=== PATIENT | female | born 1965 | race Caucasian/White ===

== ENCOUNTER 2018-11-19 19:20 | Observation (INO) | payer OTHER ==
--- NOTE | 2018-11-19 19:49 | PDOC ---
Rapid Medical Evaluation Time Seen by Provider: 11/19/18 19:46 Medical Evaluation: 11/19/18 19:46 I have performed a brief in-person evaluation of this patient. The patient presents with a chief complaint of: headache x2 months. +dizziness. Pertinent physical exam findings: CN II-XII grossly intact. Gait testing deferred. I have ordered the following: labs, urine, CTH The patient will proceed to the ED for further evaluation. Discharge Disposition - Diagnosis Headache - Referrals Referrals: Mindy Mathis [Primary Care Provider] - - Patient Instructions - Post Discharge Activity
[2018-11-19] MEDS ORDERED: KETOROLAC TROMETHAMINE 30 MG/1 ML VIAL IVPUSH ONE (19:50)
[2018-11-19] MEDS ORDERED: METOCLOPRAMIDE HCL INJECTION 10 MG/2 ML VIAL IVPUSH ONE (19:50)
[2018-11-19] MEDS ORDERED: SODIUM CHLORIDE 1,000 ML IV STA (19:50)
--- NOTE | 2018-11-19 20:41 | PDOC ---
*Physical Exam - Vital Signs Last Vital Signs Temp Pulse Resp BP Pulse Ox 98.3 F 91 H 16 132/72 100 11/19/18 19:47 11/19/18 19:47 11/19/18 19:47 11/19/18 19:47 11/19/18 19:47 ED Treatment Course - LABORATORY CBC & Chemistry Diagram: 11/19/18 21:51 11/19/18 21:51 Medical Decision Making - Medical Decision Making 11/19/18 20:41 Patient seen by the advanced practice provider under my direct supervision. Ancillary testing reviewed as necessary. I agree with plan as outlined by the advanced practice provider. *DC/Admit/Observation/Transfer Diagnosis at time of Disposition: Headache - Referrals Referrals: Mindy Mathis [Primary Care Provider] - - Patient Instructions - Post Discharge Activity
[2018-11-19] MEDS ORDERED: ACETAMINOPHEN 1000 MG/100 ML VIAL (NON FORMULARY) IVPB ONE (21:33)
[2018-11-19] MEDS ORDERED: METOCLOPRAMIDE HCL INJECTION 10 MG/2 ML VIAL ONE (21:40)
[2018-11-19] MEDS ORDERED: KETOROLAC TROMETHAMINE 30 MG/1 ML VIAL ONE (21:40)
[2018-11-19 22:15] LABS: BASO % 0.6 % (0-2.0); EOS % 5.2 % (0-4.5); HEMOGLOBIN 15.4 GM/dL (10.7-15.3); LYMPH % 34.7 % (8-40); MCH 33.4 pg (25.7-33.7); MCHC 34.9 g/dl (32.0-36.0); MEAN CELL VOLUME 95.6 fl (80-96); MEAN PLT VOLUME 8.2 fl (7.5-11.1); MONO % 7.9 % (3.8-10.2); NEUT % 51.6 % (42.8-82.8); PLATELET COUNT 289 K/MM3 (134-434); RDW 12.7 % (11.6-15.6); WHITE BLOOD COUNT 9.4 K/mm3 (4.0-10.0)
[2018-11-19 22:43] LABS: ALK PHOS 171 U/L (45-117); ANION GAP 8 MMOL/L (8-16); BILIRUBIN,TOTAL 0.2 mg/dL (0.2-1); BLOOD UREA NITROGEN 13 mg/dL (7-18); CALCIUM 9.4 mg/dL (8.5-10.1); CHLORIDE 102 mmol/L (98-107); CO2 27 mmol/L (21-32); CREATININE 0.8 mg/dL (0.55-1.3); SGPT/ALT 30 U/L (13-61); SODIUM 137 mmol/L (136-145); TOT PROT 7.6 g/dl (6.4-8.2)
[2018-11-19 22:44] LABS: POTASSIUM 4.3 mmol/L (3.5-5.1); SGOT/AST 19 U/L (15-37)
[2018-11-19 22:45] LABS: GLUCOSE,RANDOM 317 mg/dL (74-106)
[2018-11-19] MEDS ORDERED: MAGNESIUM SULF 50% (8.12 MEQ/2 ML-1 GM VIAL) IVPB ONE (23:22)
[2018-11-19] MEDS ORDERED: PROCHLORPERAZINE INJECTION 10 MG/2 ML VIAL IVPB ONE (23:22)
--- NOTE | 2018-11-19 23:43 | PDOC ---
History of Present Illness - General Chief Complaint: Lightheaded Stated Complaint: HEADACHE Time Seen by Provider: 11/19/18 19:46 History Source: Patient Exam Limitations: No Limitations Past History - Past Medical History Allergies/Adverse Reactions: Allergies Allergy/AdvReac Type Severity Reaction Status Date / Time clindamycin [From Cleocin] Allergy Verified 11/19/18 19:51 latex Allergy Verified 11/19/18 19:51 Penicillins Allergy Verified 11/19/18 19:51 COPD: No Diabetes: Yes (type 2) Other medical history: fibromylagia, neck fusion, migraines - Suicide/Smoking/Psychosocial Hx Smoking History: Former smoker Have you smoked in the past 12 months: No Information on smoking cessation initiated: No Hx Alcohol Use: No Drug/Substance Use Hx: No *Physical Exam - Vital Signs Last Vital Signs Temp Pulse Resp BP Pulse Ox 98.3 F 91 H 16 132/72 100 11/19/18 19:47 11/19/18 19:47 11/19/18 19:47 11/19/18 19:47 11/19/18 19:47 - Physical Exam General Appearance: No: Apparent Distress HEENT: positive: EOMI, MIGUEL Neck: positive: Supple Respiratory/Chest: positive: Lungs Clear, Normal Breath Sounds. negative: Respiratory Distress Cardiovascular: positive: Regular Rhythm, Regular Rate, S1, S2. negative: Murmur Gastrointestinal/Abdominal: positive: Normal Bowel Sounds, Soft. 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 negative: Sensory Deficit Moderate Sedation - Procedure Monitoring Vital Signs: Procedure Monitoring Vital Signs Temperature 98.3 F 11/19/18 19:47 Pulse Rate 91 H 11/19/18 19:47 Respiratory Rate 16 11/19/18 19:47 Blood Pressure 132/72 11/19/18 19:47 O2 Sat by Pulse Oximetry (%) 100 11/19/18 19:47 ED Treatment Course - LABORATORY CBC & Chemistry Diagram: 11/19/18 21:51 11/19/18 21:51 - ADDITIONAL ORDERS Additional order review: Laboratory Results 11/19/18 21:51 Sodium 137 Potassium 4.3 Chloride 102 Carbon Dioxide 27 Anion Gap 8 BUN 13 Creatinine 0.8 Creat Clearance w eGFR > 60 Random Glucose 317 H* Calcium 9.4 Total Bilirubin 0.2 AST 19 ALT 30 Alkaline Phosphatase 171 H Total Protein 7.6 Albumin 4.0 11/19/18 21:51 RBC 4.60 MCV 95.6 MCHC 34.9 RDW 12.7 MPV 8.2 Neutrophils % 51.6 Lymphocytes % 34.7 Monocytes % 7.9 Eosinophils % 5.2 H Basophils % 0.6 - Medications Given in the ED: ED Medications Discontinued Medications Generic Name Dose Route Start Last Admin Trade Name Ziaq PRN Reason Stop Dose Admin Acetaminophen 1,000 mg 11/19/18 21:33 11/19/18 20:44 Ofirmev Injection - IVPB 11/19/18 21:34 1,000 mg ONCE ONE Administration Diphenhydramine HCl 25 mg 11/19/18 19:50 11/19/18 20:43 Benadryl Injection - IVPUSH 11/19/18 19:51 25 mg ONCE ONE Administration Sodium Chloride 1,000 mls @ 1,000 mls/hr 11/19/18 19:50 11/19/18 20:43 Normal Saline - IV 11/19/18 20:49 1,000 mls/hr ASDIR STA Administration Ketorolac Tromethamine 30 mg 11/19/18 19:50 11/19/18 22:45 Toradol Injection - IVPUSH 11/19/18 19:51 Not Given ONCE ONE Metoclopramide HCl 10 mg 11/19/18 19:50 11/19/18 20:44 Reglan Injection - IVPUSH 11/19/18 19:51 10 mg ONCE ONE Administration Medical Decision Making - Medical Decision Making 53 y/o F with hx of migraines, fibromyalgia, DM, chronic sinusitis, bipolar presents with gradual onset of generalized PALAFOX x 2 months, not getting better despite use of Zomeg, Excedrin, Tylenol and Alleve. She saw her PCP twice regarding this and was told it was likely related to migraine; she last saw her PCP 4 days ago when she received Toradol which did not help patient. PALAFOX is worse with light and noise. PALAFOX associated with lightheadedness and increased fatigue over past 2 months. Also mentions having R eye pain last night. Denies visual/gait changes, sob, cp, abd pain, n/v, vertigo. Patient has numbness from her neuropathy but denies new numbness/tingling/weakness of extremities. CT head negative Also noted with elevated glucose, no anion gap noted Consider intractable migraine Patient was given 1L of IVF, benadryl, Tylenol and Reglan but with minimal relief of pain Will also try Compazine and magnesium; reassess Will also recheck FS 11/19/18 23:39 Reassessed and still feels PALAFOX is at same pain level Patient otherwise appears comfortable Not suspicious for SAH Will admit for intractable migraine 11/20/18 02:15 *DC/Admit/Observation/Transfer Diagnosis at time of Disposition: Intractable migraine Qualifiers: Migraine type: unspecified Status migrainosus presence: without status migrainosus Qualified Code(s): G43.919 - Migraine, unspecified, intractable, without status migrainosus - Discharge Dispostion Condition at time of disposition: Stable Decision to Admit order: Yes - Referrals Referrals: Mindy Mathis [Primary Care Provider] - - Patient Instructions - Post Discharge Activity
[2018-11-20] MEDS ORDERED: MAGNESIUM 1GM/D5W - 1 GM/100 ML IVPB IVPB ONE (00:10)
[2018-11-20] MEDS ORDERED: SODIUM CHLORIDE 1,000 ML IV STA (00:31)
--- NOTE | 2018-11-20 02:11 | HP ---
CHIEF COMPLAINT: headache PCP: Del HISTORY OF PRESENT ILLNESS: 53 y/o woman with headache x 2 months, not getting better despite use of Zomeg, Excedrin, Tylenol and Alleve. She saw her PCP twice regarding this and was told it was likely related to migraine; she last saw her PCP 4 days ago when she received Toradol which did not help patient. PALAFOX is worse with light and noise. Also feeling fatigue for last 2 months, reports very uncontrolled blood glucose with last a1c being 14. ER course was notable for: (1) head CT (2) toradol (3) Recent Travel: no PAST MEDICAL HISTORY: migraines, fibromyalgia, DM, chronic sinusitis, bipolar PAST SURGICAL HISTORY: no Social History: Smoking:no Alcohol:no Drugs: no Family History: no Allergies clindamycin [From Cleocin] Allergy (Verified 11/19/18 19:51) latex Allergy (Verified 11/19/18 19:51) Penicillins Allergy (Verified 11/19/18 19:51) HOME MEDICATIONS: REVIEW OF SYSTEMS CONSTITUTIONAL: Absent: fever, chills, diaphoresis, , loss of appetite, weight change present- generalized weakness, malaise HEENT: Absent: rhinorrhea, nasal congestion, throat pain, throat swelling, difficulty swallowing, mouth swelling, ear pain, eye pain, visual changes CARDIOVASCULAR: Absent: chest pain, syncope, palpitations, irregular heart rate, lightheadedness , peripheral edema RESPIRATORY: Absent: cough, shortness of breath, dyspnea with exertion, orthopnea, wheezing, stridor, hemoptysis GASTROINTESTINAL: Absent: abdominal pain, abdominal distension, nausea, vomiting, diarrhea, constipation, melena, hematochezia GENITOURINARY: Absent: dysuria, frequency, urgency, hesitancy, hematuria, flank pain, genital pain MUSCULOSKELETAL: Absent: myalgia, arthralgia, joint swelling, back pain, neck pain SKIN: Absent: rash, itching, pallor HEMATOLOGIC/IMMUNOLOGIC: Absent: easy bleeding, easy bruising, lymphadenopathy, frequent infections ENDOCRINE: Absent: unexplained weight gain, unexplained weight loss, heat intolerance, cold intolerance NEUROLOGIC: Absent: , focal weakness or paresthesias, dizziness, unsteady gait, seizure, mental status changes, bladder or bowel incontinence present- headache PSYCHIATRIC: Absent: anxiety, depression, suicidal or homicidal ideation, hallucinations. PHYSICAL EXAMINATION Vital Signs - 24 hr 11/19/18 19:47 Temperature 98.3 F Pulse Rate 91 H Respiratory 16 Rate Blood Pressure 132/72 O2 Sat by Pulse 100 Oximetry (%) GENERAL: Awake, alert, and fully oriented, in no acute distress. HEAD: Normal with no signs of trauma. EYES: Pupils equal, round and reactive to light, extraocular movements intact, sclera anicteric, conjunctiva clear. No lid lag. EARS, NOSE, THROAT: Ears normal, nares patent, oropharynx clear without exudates. Moist mucous membranes. NECK: Normal range of motion, supple without lymphadenopathy, JVD, or masses. LUNGS: Breath sounds equal, clear to auscultation bilaterally. No wheezes, and no crackles. No accessory muscle use. HEART: Regular rate and rhythm, normal S1 and S2 without murmur, rub or gallop. ABDOMEN: Soft, nontender, not distended, normoactive bowel sounds, no guarding, no rebound, no masses. MUSCULOSKELETAL: Normal range of motion at all joints. No bony deformities or tenderness. No CVA tenderness. UPPER EXTREMITIES: 2+ pulses, warm, well-perfused. No cyanosis. No clubbing. No peripheral edema. LOWER EXTREMITIES: 2+ pulses, warm, well-perfused. No calf tenderness. No peripheral edema. NEUROLOGICAL: Cranial nerves II-XII intact. Normal speech. Normal gait. PSYCHIATRIC: Cooperative. Good eye contact. Appropriate mood and affect. SKIN: Warm, dry, normal turgor, no rashes or lesions noted, normal capillary refill. Laboratory Results - last 24 hr 11/19/18 11/19/18 11/20/18 21:51 21:51 00:20 WBC 9.4 RBC 4.60 Hgb 15.4 H Hct 44.0 MCV 95.6 MCH 33.4 MCHC 34.9 RDW 12.7 Plt Count 289 MPV 8.2 Absolute Neuts (auto) 4.9 Neutrophils % 51.6 Lymphocytes % 34.7 Monocytes % 7.9 Eosinophils % 5.2 H Basophils % 0.6 Nucleated RBC % 0 Sodium 137 Potassium 4.3 Chloride 102 Carbon Dioxide 27 Anion Gap 8 BUN 13 Creatinine 0.8 Creat Clearance w eGFR > 60 POC Glucometer 317 Random Glucose 317 H* Calcium 9.4 Total Bilirubin 0.2 AST 19 ALT 30 Alkaline Phosphatase 171 H Total Protein 7.6 Albumin 4.0 imaging reviewed ASSESSMENT/PLAN: #Headache- migraine? analgesic overuse headache? CT negative for any acute intracranial pathology. -observation -naproxen 500mg po prn -neuro evaluation -zofran IV prn if nausea or vomiting -avoid excess noise/light #DM -uncontrolled , no -novolog sliding scale -diabetic diet -a1c -IV fluid hydration -endocrine consult #DVT ppx- heparin sc Visit type - Emergency Visit Emergency Visit: Yes ED Registration Date: 11/20/18 Care time: The patient presented to the Emergency Department on the above date and was hospitalized for further evaluation of their emergent condition. - New Patient This patient is new to me today: Yes Date on this admission: 11/20/18 - Critical Care Critical Care patient: No
[2018-11-20] MEDS ORDERED: ONDANSETRON 4 MG/2 ML VIAL IM PRN (02:14)
[2018-11-20] MEDS ORDERED: NAPROXEN 500 MG TABLET (FP) PO PRN (02:15)
[2018-11-20] MEDS: SODIUM CHLORIDE 1,000 ML IV SCH ×2 (04:43→11:43)
[2018-11-20 04:48] LABS: URINE APPEARANCE CLEAR; URINE BILIRUBIN NEGATIVE (<2.0 mg/dL); URINE COLOR LTYELLOW; URINE GLUCOSE (UA) 3+ (NEGATIVE); URINE KETONE NEGATIVE (NEGATIVE); URINE LEUK ESTERASE NEGATIVE (NEGATIVE); URINE NITRITE NEGATIVE (NEGATIVE); URINE PROTEIN NEGATIVE (NEGATIVE); URINE UROBILINOGEN NEGATIVE mg/dL (0.2-1.0)
[2018-11-20] MEDS ORDERED: INSULIN (NOVOLOG) ASPART 100 UNITS/ML 10ML VIAL ONE (07:21)
[2018-11-20] MEDS: INSULIN SLIDING SCALE (NOVOLOG) 1 VIAL SQ SCH ×4 (07:25→22:14)
--- NOTE | 2018-11-20 08:29 | PN ---
Progress Note, Physician Chief Complaint: EVENTS AND NOTES REVIEWED C/O HEADACHE - Current Medication List Current Medications: Active Medications Heparin Sodium (Porcine) (Heparin -) 5,000 unit SQ BID CLARI Sodium Chloride (Normal Saline -) 1,000 mls @ 75 mls/hr IV ASDIR CLARI Last Admin: 11/20/18 04:43 Dose: 75 mls/hr Insulin Aspart (Novolog Vial Sliding Scale -) 1 vial SQ ACHS [facility]; Protocol Last Admin: 11/20/18 07:25 Dose: 6 units Insulin Detemir (Levemir Vial) 10 units SQ HS CLARI Ketorolac Tromethamine (Toradol Injection -) 30 mg IVPUSH Q6H PRN PRN Reason: PAIN LEVEL 6-10 Stop: 11/25/18 08:27 Naproxen (Naprosyn -) 500 mg PO BID PRN PRN Reason: PAIN LEVEL 6-10 Ondansetron HCl (Zofran Injection) 4 mg IM Q6H PRN PRN Reason: NAUSEA - Objective Vital Signs: Vital Signs Temperature 98.1 F 11/20/18 06:18 Pulse Rate 74 11/20/18 06:18 Respiratory Rate 16 11/20/18 06:18 Blood Pressure 126/75 11/20/18 06:18 O2 Sat by Pulse Oximetry (%) 99 11/20/18 06:18 Constitutional: Yes: Mild Distress Eyes: Yes: WNL HENT: Yes: WNL Neck: Yes: WNL Cardiovascular: Yes: WNL Respiratory: Yes: WNL Gastrointestinal: Yes: WNL Genitourinary: Yes: WNL Musculoskeletal: Yes: WNL Extremities: Yes: WNL Edema: No Integumentary: Yes: WNL Wound/Incision: Yes: Clean/Dry Neurological: Yes: WNL ...Motor Strength: WNL Labs: CBC, BMP 11/19/18 21:51 11/19/18 21:51 Problem List - Problems (1) Diabetes type 2, uncontrolled Code(s): E11.65 - TYPE 2 DIABETES MELLITUS WITH HYPERGLYCEMIA (2) Intractable migraine Code(s): G43.919 - MIGRAINE, UNSP, INTRACTABLE, WITHOUT STATUS MIGRAINOSUS Qualifiers: Migraine type: unspecified Status migrainosus presence: without status migrainosus Qualified Code(s): G43.919 - Migraine, unspecified, intractable, without status migrainosus Assessment/Plan TORADOL IV PRN ENDOCRINE CONSULT FOR UNCONTROLLED DM NEUROLOGY EVAL FOR HEADACHE MRI BRAIN PENDING CHECKING LABS
[2018-11-20] MEDS: SUMAtriptan SUCCINATE 25 MG TABLET PO PRN (11:43)
[2018-11-20] MEDS: HEPARIN NA (PORCINE) 5,000 UNITS/ML 1ML VIAL SQ SCH ×2 (11:43→22:13)
--- NOTE | 2018-11-20 13:01 | CON.NEURO ---
Consult - History of Present Illness History of Present Illness: 53 y/o woman with headache x 2 months, not getting better despite use of Zomeg, Excedrin, Tylenol and Alleve. She saw her PCP twice regarding this and was told it was likely related to migraine; she last saw her PCP 4 days ago when she received Toradol which did not help patient. PALAFOX is worse with light and noise. Also feeling fatigue for last 2 months, reports very uncontrolled blood glucose with last a1c being 14. CT HD (-) - Alcohol/Substance Use Hx Alcohol Use: No - Smoking History Smoking history: Former smoker Have you smoked in the past 12 months: No Home Medications - Allergies Allergies/Adverse Reactions: Allergies Allergy/AdvReac Type Severity Reaction Status Date / Time clindamycin [From Cleocin] Allergy Verified 11/19/18 19:51 latex Allergy Verified 11/19/18 19:51 Penicillins Allergy Verified 11/19/18 19:51 - Home Medications Home Medications: Ambulatory Orders Atorvastatin Ca [Lipitor] 40 mg PO HS 11/20/18 Carbamazepine [Tegretol -] 200 mg PO DAILY 11/20/18 Carbamazepine [Tegretol -] 400 mg PO HS 11/20/18 Duloxetine HCl [Cymbalta] 60 mg PO BID 11/20/18 Gabapentin 600 mg PO BID 11/20/18 Liraglutide [Victoza -] 1.8 mg SQ DAILY@0700 11/20/18 Metformin HCl [Glucophage] 1,000 mg PO BID 11/20/18 Milnacipran HCl [Savella] 50 mg PO BID 11/20/18 Montelukast Sodium [Singulair] 10 mg PO DAILY 11/20/18 Quetiapine Fumarate [Seroquel] 150 tab PO DAILY 11/20/18 Solifenacin Succinate [Vesicare -] 10 mg PO DAILY 11/20/18 Tramadol HCl 50 mg PO TID 11/20/18 Physical Exam-Neuro Vital Signs: Vital Signs Temperature 98.1 F 11/20/18 06:18 Pulse Rate 74 11/20/18 06:18 Respiratory Rate 16 11/20/18 06:18 Blood Pressure 126/75 11/20/18 06:18 O2 Sat by Pulse Oximetry (%) 99 11/20/18 06:18 Labs: CBC, BMP 11/19/18 21:51 11/19/18 21:51 Problem List - Problems (1) Diabetes type 2, uncontrolled Code(s): E11.65 - TYPE 2 DIABETES MELLITUS WITH HYPERGLYCEMIA (2) Intractable migraine Code(s): G43.919 - MIGRAINE, UNSP, INTRACTABLE, WITHOUT STATUS MIGRAINOSUS Qualifiers: Migraine type: unspecified Status migrainosus presence: without status migrainosus Qualified Code(s): G43.919 - Migraine, unspecified, intractable, without status migrainosus Assessment/Plan 53 y/o woman with headache x 2 months, not getting better despite use of Zomeg, Excedrin, Tylenol and Alleve. She saw her PCP twice regarding this and was told it was likely related to migraine; she last saw her PCP 4 days ago when she received Toradol which did not help patient. PALAFOX is worse with light and noise. Also feeling fatigue for last 2 months, reports very uncontrolled blood glucose with last a1c being 14. CT HD (-) AP : status migrainosous, has dealt with PALAFOX since she was child due for BOTOX in few weeks outpt though has PALAFOX VAS 9/10 x 2 months now - intractable would get baseline EKG and if no hx cardiac issues (she denies) would start DHE 0.5MG IVTID and premedicate with Reglan 10MG 30min prior. DM control will FU plz call any questions DR CROFT [phone]
[2018-11-20 14:51] VITALS: BMI 34.5
[2018-11-20] MEDS ORDERED: INSULIN (LEVEMIR) 100 UNITS/ML UNITS SQ SCH (22:00)
[2018-11-20] MEDS: KETOROLAC TROMETHAMINE 30 MG/1 ML VIAL IVPUSH PRN (22:18)
--- NOTE | 2018-11-21 01:43 | CONSULT ---
Consult Consult Specialty:: endocrine Referred by:: dr.[email or web address] melo Reason for Consultation:: diabetes mellitus type2 - History of Present Illness Chief Complaint: high sugars and headaches History of Present Illness: 53 y/o woman with pmh dm type 2, headache , not getting better despite use of Zomeg, Excedrin, Tylenol and Alleve. She saw her PCP twice regarding this and was told it was likely related to migraine; she last saw her PCP 4 days ago when she received Toradol which was not relieved,headache were unbearable which she was seen in ed,found to have bs over 350mg/dl and admitted for intractable headache and hyperglycemia,she has had difficulty controlling bs despite diet restriction,headache have made eating difficult she denies hypoglycemia - Past Medical History ...: No - Alcohol/Substance Use Hx Alcohol Use: No - Smoking History Smoking history: Former smoker Have you smoked in the past 12 months: No If you are a former smoker, when did you quit?: 1999 Home Medications - Allergies Allergies/Adverse Reactions: Allergies Allergy/AdvReac Type Severity Reaction Status Date / Time clindamycin [From Cleocin] Allergy Verified 11/19/18 19:51 latex Allergy Verified 11/19/18 19:51 Penicillins Allergy Verified 11/19/18 19:51 - Home Medications Home Medications: Ambulatory Orders Atorvastatin Ca [Lipitor] 40 mg PO HS 11/20/18 Carbamazepine [Tegretol -] 200 mg PO DAILY 11/20/18 Carbamazepine [Tegretol -] 400 mg PO HS 11/20/18 Duloxetine HCl [Cymbalta] 60 mg PO BID 11/20/18 Gabapentin 600 mg PO BID 11/20/18 Liraglutide [Victoza -] 1.8 mg SQ DAILY@0700 11/20/18 Metformin HCl [Glucophage] 1,000 mg PO BID 11/20/18 Milnacipran HCl [Savella] 50 mg PO BID 11/20/18 Montelukast Sodium [Singulair] 10 mg PO DAILY 11/20/18 Quetiapine Fumarate [Seroquel] 150 tab PO DAILY 11/20/18 Solifenacin Succinate [Vesicare -] 10 mg PO DAILY 11/20/18 Tramadol HCl 50 mg PO TID 11/20/18 Review of Systems - Review of Systems Constitutional: reports: Lethargy Eyes: reports: Blurred Vision HENT: reports: No Symptoms Neck: reports: No Symptoms Cardiovascular: reports: No Symptoms Respiratory: reports: No Symptoms Gastrointestinal: reports: Bloating, Constipation Genitourinary: reports: No Symptoms Breasts: reports: No Symptoms Reported Musculoskeletal: reports: Joint Swelling, Muscle Pain, Muscle Cramps, Muscle Weakness Neurological: reports: Weakness Endocrine: reports: Unexplained Weight Loss Hematology/Lymphatic: reports: No Symptoms Physical Exam Vital Signs: Vital Signs Temperature 98.5 F 11/20/18 18:00 Pulse Rate 82 11/20/18 18:00 Respiratory Rate 20 11/20/18 18:00 Blood Pressure 144/92 11/20/18 18:00 O2 Sat by Pulse Oximetry (%) 99 11/20/18 17:15 Constitutional: Yes: Calm Eyes: Yes: EOM Intact HENT: Yes: Normocephalic Neck: Yes: Trachea Midline Cardiovascular: Yes: Regular Rate and Rhythm Respiratory: Yes: CTA Bilaterally Gastrointestinal: Yes: Normal Bowel Sounds ...Rectal Exam: Yes: Deferred Renal/: Yes: WNL Musculoskeletal: Yes: WNL Extremities: Yes: WNL Edema: No ...Motor Strength: WNL Psychiatric: Yes: Alert, Oriented Labs: CBC, BMP 11/19/18 21:51 11/19/18 21:51 Problem List - Problems (1) Diabetes type 2, uncontrolled Code(s): E11.65 - TYPE 2 DIABETES MELLITUS WITH HYPERGLYCEMIA (2) Intractable migraine Code(s): G43.919 - MIGRAINE, UNSP, INTRACTABLE, WITHOUT STATUS MIGRAINOSUS Qualifiers: Migraine type: unspecified Status migrainosus presence: without status migrainosus Qualified Code(s): G43.919 - Migraine, unspecified, intractable, without status migrainosus Assessment/Plan Current Active Problems Diabetes type 2, uncontrolled (Acute) Intractable migraine (Acute) neuropathy headache mostly diabetic neuralgia Abnormal Lab Results 11/20/18 11/20/18 11/20/18 04:32 04:32 06:00 Hemoglobin A1c % 12.5 H C-Reactive Protein Urine Glucose (UA) 3+ H Acetone, Qual Negative L 11/20/18 08:50 Hemoglobin A1c % C-Reactive Protein 0.4 H Urine Glucose (UA) Acetone, Qual Laboratory Results - last 24 hr 11/20/18 11/20/18 11/20/18 04:20 04:32 04:32 ESR POC Glucometer 299 Hemoglobin A1c % C-Reactive Protein Urine Color Ltyellow Urine Appearance Clear Urine pH 6.0 Ur Specific [place] 1.026 Urine Protein Negative Urine Glucose (UA) 3+ H Urine Ketones Negative Urine Blood Negative Urine Nitrite Negative Urine Bilirubin Negative Urine Urobilinogen Negative Ur Leukocyte Esterase Negative Carbamazepine Acetone, Qual Negative L 11/20/18 11/20/18 11/20/18 06:00 06:38 07:19 ESR POC Glucometer 272 294 Hemoglobin A1c % 12.5 H C-Reactive Protein Urine Color Urine Appearance Urine pH Ur Specific [place] Urine Protein Urine Glucose (UA) Urine Ketones Urine Blood Urine Nitrite Urine Bilirubin Urine Urobilinogen Ur Leukocyte Esterase Carbamazepine Acetone, Qual 11/20/18 11/20/18 11/20/18 08:50 08:50 08:50 ESR 12 POC Glucometer Hemoglobin A1c % C-Reactive Protein 0.4 H Urine Color Urine Appearance Urine pH Ur Specific [place] Urine Protein Urine Glucose (UA) Urine Ketones Urine Blood Urine Nitrite Urine Bilirubin Urine Urobilinogen Ur Leukocyte Esterase Carbamazepine 3.8 Acetone, Qual 11/20/18 11/20/18 11/20/18 11:42 17:06 22:11 ESR POC Glucometer 311 250 305 Hemoglobin A1c % C-Reactive Protein Urine Color Urine Appearance Urine pH Ur Specific [place] Urine Protein Urine Glucose (UA) Urine Ketones Urine Blood Urine Nitrite Urine Bilirubin Urine Urobilinogen Ur Leukocyte Esterase Carbamazepine Acetone, Qual plan: levemir 25 unit am levemir 15 units hs novolog scale diet nutrition follow up for cgms monitoring out patient
[2018-11-21] MEDS: SODIUM CHLORIDE 1,000 ML IV SCH (04:48)
[2018-11-21] MEDS: INSULIN SLIDING SCALE (NOVOLOG) 1 VIAL SQ SCH ×2 (06:49→12:09)
[2018-11-21] MEDS: KETOROLAC TROMETHAMINE 30 MG/1 ML VIAL IVPUSH PRN (06:50)
[2018-11-21 06:57] VITALS: TEMP 98.3
[2018-11-21] MEDS ORDERED: INSULIN (LEVEMIR) 100 UNITS/ML UNITS SQ SCH ×3 (07:00→22:00)
[2018-11-21] MEDS ORDERED: INSULIN (LEVEMIR) 100 UNITS/ML UNITS SQ ONE (07:04)
[2018-11-21] MEDS ORDERED: INSULIN (NOVOLOG) ASPART 100 UNITS/ML 10ML VIAL ONE ×2 (07:04→12:06)
[2018-11-21 08:37] LABS: HEMATOCRIT 41.6 % (32.4-45.2); HEMOGLOBIN 14.5 GM/dL (10.7-15.3); MCH 33.4 pg (25.7-33.7); MCHC 34.9 g/dl (32.0-36.0); MEAN CELL VOLUME 95.5 fl (80-96); MEAN PLT VOLUME 7.9 fl (7.5-11.1); PLATELET COUNT 259 K/MM3 (134-434); RBC 4.36 M/mm3 (3.60-5.2); RDW 12.4 % (11.6-15.6); WHITE BLOOD COUNT 7.7 K/mm3 (4.0-10.0)
[2018-11-21 09:11] LABS: ANION GAP 6 MMOL/L (8-16); BLOOD UREA NITROGEN 12 mg/dL (7-18); CALCIUM 8.4 mg/dL (8.5-10.1); CHLORIDE 108 mmol/L (98-107); CO2 23 mmol/L (21-32); CREATININE 0.5 mg/dL (0.55-1.3); GLUCOSE,RANDOM 217 mg/dL (74-106); MAGNESIUM 1.8 mg/dL (1.8-2.4); POTASSIUM 3.9 mmol/L (3.5-5.1); SODIUM 137 mmol/L (136-145)
[2018-11-21] MEDS: HEPARIN NA (PORCINE) 5,000 UNITS/ML 1ML VIAL SQ SCH (09:23)
--- NOTE | 2018-11-21 10:00 | DS ---
Physical Examination Vital Signs: Vital Signs Temperature 98.3 F 11/21/18 06:00 Pulse Rate 80 11/21/18 06:00 Respiratory Rate 20 11/21/18 06:00 Blood Pressure 150/80 11/21/18 06:00 O2 Sat by Pulse Oximetry (%) 98 11/21/18 01:00 Constitutional: Yes: No Distress Eyes: Yes: WNL HENT: Yes: WNL Neck: Yes: WNL Cardiovascular: Yes: WNL Respiratory: Yes: WNL Gastrointestinal: Yes: WNL Renal/: Yes: WNL Musculoskeletal: Yes: WNL Extremities: Yes: WNL Labs: CBC, BMP 11/21/18 08:00 11/21/18 08:00 Discharge Summary Reason For Visit: INTRACTABLE MIGRAINE Current Active Problems Diabetes type 2, uncontrolled (Acute) Intractable migraine (Acute) Procedures: Principal: MRI BRAIN Hospital Course: ADMITTED IVF IV MEDICATIONS PAIN CONTROL, NEUROLOGY WORKUP Condition: Stable - Instructions Diet, Activity, Other Instructions: SEE DR LEW IN 1-2 DAYS NEURO FOLOW UP SEE YOUR PMD IN 1 WEEK Disposition: HOME - Home Medications Comprehensive Discharge Medication List: Ambulatory Orders Atorvastatin Ca [Lipitor] 40 mg PO HS 11/20/18 Carbamazepine [Tegretol -] 200 mg PO DAILY 11/20/18 Carbamazepine [Tegretol -] 400 mg PO HS 11/20/18 Duloxetine HCl [Cymbalta] 60 mg PO BID 11/20/18 Gabapentin 600 mg PO BID 11/20/18 Liraglutide [Victoza -] 1.8 mg SQ DAILY@0700 11/20/18 Metformin HCl [Glucophage] 1,000 mg PO BID 11/20/18 Milnacipran HCl [Savella] 50 mg PO BID 11/20/18 Montelukast Sodium [Singulair] 10 mg PO DAILY 11/20/18 Quetiapine Fumarate [Seroquel] 150 tab PO DAILY 11/20/18 Solifenacin Succinate [Vesicare -] 10 mg PO DAILY 11/20/18 Tramadol HCl 50 mg PO TID 11/20/18 Naproxen [Naprosyn -] 500 mg PO BID PRN #60 tablet 11/21/18 Sumatriptan Succinate [Imitrex -] 25 mg PO Q12H PRN #30 tablet 11/21/18
[2018-11-21 10:31] VITALS: BP 141/85; PULSE 76
--- NOTE | 2018-11-21 12:07 | PN ---
Progress Note (short form) - Note Progress Note: 53 y/o woman with headache x 2 months, not getting better despite use of Zomeg, Excedrin, Tylenol and Alleve. She saw her PCP twice regarding this and was told it was likely related to migraine; she last saw her PCP 4 days ago when she received Toradol which did not help patient. PALAFOX is worse with light and noise. Also feeling fatigue for last 2 months, reports very uncontrolled blood glucose with last a1c being 14. CT HD (-) FU : seen by melani PALAFOX continues, but is longstanding - Alcohol/Substance Use Hx Alcohol Use: No - Smoking History Smoking history: Former smoker Have you smoked in the past 12 months: No Home Medications - Allergies Allergies/Adverse Reactions: Allergies Allergy/AdvReac Type Severity Reaction Status Date / Time clindamycin [From Cleocin] Allergy Verified 11/19/18 19:51 latex Allergy Verified 11/19/18 19:51 Penicillins Allergy Verified 11/19/18 19:51 - Home Medications Home Medications: Ambulatory Orders Atorvastatin Ca [Lipitor] 40 mg PO HS 11/20/18 Carbamazepine [Tegretol -] 200 mg PO DAILY 11/20/18 Carbamazepine [Tegretol -] 400 mg PO HS 11/20/18 Duloxetine HCl [Cymbalta] 60 mg PO BID 11/20/18 Gabapentin 600 mg PO BID 11/20/18 Liraglutide [Victoza -] 1.8 mg SQ DAILY@0700 11/20/18 Metformin HCl [Glucophage] 1,000 mg PO BID 11/20/18 Milnacipran HCl [Savella] 50 mg PO BID 11/20/18 Montelukast Sodium [Singulair] 10 mg PO DAILY 11/20/18 Quetiapine Fumarate [Seroquel] 150 tab PO DAILY 11/20/18 Solifenacin Succinate [Vesicare -] 10 mg PO DAILY 11/20/18 Tramadol HCl 50 mg PO TID 11/20/18 Physical Exam-Neuro Vital Signs: Vital Signs Temperature 98.3 F 11/21/18 10:00 Pulse Rate 76 11/21/18 10:00 Respiratory Rate 20 11/21/18 10:00 Blood Pressure 141/85 11/21/18 10:00 O2 Sat by Pulse Oximetry (%) 98 11/21/18 01:00 Labs: CBC, BMP 11/19/18 21:51 11/19/18 21:51 Problem List - Problems (1) Diabetes type 2, uncontrolled Code(s): E11.65 - TYPE 2 DIABETES MELLITUS WITH HYPERGLYCEMIA (2) Intractable migraine Code(s): G43.919 - MIGRAINE, UNSP, INTRACTABLE, WITHOUT STATUS MIGRAINOSUS Qualifiers: Migraine type: unspecified Status migrainosus presence: without status migrainosus Qualified Code(s): G43.919 - Migraine, unspecified, intractable, without status migrainosus Assessment/Plan 53 y/o woman with headache x 2 months, not getting better despite use of Zomeg, Excedrin, Tylenol and Alleve. She saw her PCP twice regarding this and was told it was likely related to migraine; she last saw her PCP 4 days ago when she received Toradol which did not help patient. PALAFOX is worse with light and noise. Also feeling fatigue for last 2 months, reports very uncontrolled blood glucose with last a1c being 14. CT HD (-) AP : status migrainosous, has dealt with PALAFOX since she was child due for BOTOX in few weeks outpt though has PALAFOX VAS 9/10 x 2 months now - intractable will manage as outpt DM Control neuro cleared DR CROFT [phone] Problem List - Problems (1) Diabetes type 2, uncontrolled Code(s): E11.65 - TYPE 2 DIABETES MELLITUS WITH HYPERGLYCEMIA (2) Intractable migraine Code(s): G43.919 - MIGRAINE, UNSP, INTRACTABLE, WITHOUT STATUS MIGRAINOSUS Qualifiers: Migraine type: unspecified Status migrainosus presence: without status migrainosus Qualified Code(s): G43.919 - Migraine, unspecified, intractable, without status migrainosus
[2018-11-21] MEDS ORDERED: PT OWN MED DRAWER 7, Y5N ONE (12:12)
[2018-11-21] MEDS: SUMAtriptan SUCCINATE 25 MG TABLET PO PRN (12:13)
== END 2018-11-21 12:50 | disposition home or self-care (01) ==
LOC: JER 19:20 → JERBED 11-20 02:16 → J5S 11-20 08:20
PROVIDERS: ADMIT Internal Medicine; ATTEND Family Medicine
PROC: 3E033GC Introduction of Other Therapeutic Substance into Peripheral Vein, Percutaneous Approach (ICD-10-PCS; principal; 2018-11-20)
PROC: 3E0337Z Introduction of Electrolytic and Water Balance Substance into Peripheral Vein, Percutaneous Approach (ICD-10-PCS; 2018-11-20)
PROC: 3E0333Z Introduction of Anti-inflammatory into Peripheral Vein, Percutaneous Approach (ICD-10-PCS; 2018-11-20)
PROC: 3E013VG Introduction of Insulin into Subcutaneous Tissue, Percutaneous Approach (ICD-10-PCS; 2018-11-20)
PROC: 3E013GC Introduction of Other Therapeutic Substance into Subcutaneous Tissue, Percutaneous Approach (ICD-10-PCS; 2018-11-20)
DX: G43.919 Migraine, unspecified, intractable, without status migrainosus (principal); E11.65 Type 2 diabetes mellitus with hyperglycemia; M79.7 Fibromyalgia; F31.9 Bipolar disorder, unspecified; Z87.891 Personal history of nicotine dependence; Z79.84 Long term (current) use of oral hypoglycemic drugs; Z88.0 Allergy status to penicillin; Z88.1 Allergy status to other antibiotic agents
CPT/HCPCS: 36415; 70450-TC; 70551-TC; 80048; 80053; 80156; 81003; 82009; 82962; 83036; 83735; 85025; 85027; 85651; 86140; 87086; 87186; 99283-25; G0378; J0131; J1644; J7030